=== PATIENT | male | born 1995 | race Caucasian/White ===

== ENCOUNTER 2016-06-15 20:08 | Emergency (ER) | payer SELFPAY ==
[2016-06-15 21:36] LABS: CALCIUM 8.6 mg/dL (8.5-10.1); CARBON DIOXIDE 25.7 mmol/L (21-32); CHLORIDE SERUM 104 mmol/L (98-107); CREATININE SERUM 0.7 mg/dL (0.7-1.3); GFR1 > 60 mL/min; GLUCOSE SERUM 106 mg/dL (74-106); POTASSIUM SERUM 3.8 mmol/L (3.5-5.1); SODIUM SERUM 139 mmol/L (136-145)
[2016-06-15 21:42] LABS: ALBUMIN 4.5 g/dL (3.4-5.0); ALKALINE PHOSPHATASE 88 U/L (46-116); ALT/SGPT 34 U/L (16-63); AST/SGOT 21 U/L (15-37); BILIRUBIN TOTAL 0.34 mg/dL (0.20-1.00); TOTAL PROTEIN, SERUM 8.1 g/dL (6.4-8.2)
[2016-06-15 22:13] LABS: BASOPHIL % 0.6 % (0-2); PLATELET COUNT 279 x10^3mcL (130-400)
[2016-06-16 02:19] VITALS: BP 106/58
== END 2016-06-16 02:19 | disposition home or self-care (01) ==
LOC: ED 20:08
PROVIDERS: Emergency Medicine
DX: F10.129 Alcohol abuse with intoxication, unspecified (principal)
CPT/HCPCS: G0480; J1630; J7030; Q0092